=== PATIENT | female | born 1935 | race Caucasian/White ===

== ENCOUNTER → 2017-07-19 | Outpatient (CLI) | payer MEDICARE, BC ==
[~2017-07-19] MED LIST: ACIPHEX20 MG PO; ASCORBIC ACID500 M3 PO; ATIVAN0.5 MG PO; Atarax,Vistaril PO; Ativan PO; COUMADIN2.5 MG PO; Caltrate 600/200 PO; Caltrate 600/400 PO; Coumadin dosing per PO; FIBER350 GM PO; FLONASE16 G1 BOTH NARES; FOLIC ACID1 MG PO; Feosol PO; HYDROCODON-ACE1 EAC7 PO; LIPITOR10 MG PO; LORCET 5-325 M1 EACH PO; Lipitor PO; MULTI-DAY VITA1 EACH PO; Metamucil Packet PO; PREDNISONE10 MG PO; PREMARIN VAGI42.5 GM VG; PROBIOTIC1 EAC1 PO; Percocet 5/325,Endoc PO; Senokot S,Pericolace PO; THERAGRAN1 TABLET PO; VAGIFEM10 MCG VG; VITAMIN D22000 UNIT PO; VITAMIN D250000 UNIT PO; Vagifem VG; ZYRTEC5 MG PO; ZyrTEC PO; [UNRECOGNIZED DRUG - OTHER] PO
== END | disposition home or self-care (01) ==
LOC: CDC 08:14
DX: Z01.810 Encounter for preprocedural cardiovascular examination (principal)
CPT/HCPCS: 93000